=== PATIENT | male | born 1985 | race Caucasian/White ===

== ENCOUNTER 2018-06-10 10:38 | Emergency (ER) | payer MEDICAID ==
[~2018-06-10] VITALS: Ht 175.3 cm; Wt 67.3 kg
[2018-06-10 10:42] VITALS: Ht 175.3 cm; Wt 67.3 kg
[2018-06-10 12:42] VITALS: BP 107/77
== END 2018-06-10 12:42 | disposition home or self-care (01) ==
LOC: ED 10:38
DX: F15.20 Other stimulant dependence, uncomplicated (principal)